=== PATIENT | male | born 1975 | race Caucasian/White ===

== ENCOUNTER 2017-10-16 09:06 | Day surgery (SDC) | payer OTHER ==
[~2017-10-16 09:06] MED LIST: METOPROLOL 5 MG INJ
[2017-10-16] MEDS: LACTATED RINGER'S 1,000 ML IV* (10:14)
[2017-10-16] MEDS ORDERED: ONDANSETRON 4 MG INJ ×2 (12:23→14:33)
[2017-10-16] MEDS ORDERED: METOCLOPRAMIDE 10 MG INJ (12:23)
[2017-10-16] MEDS ORDERED: MIDAZOLAM 1 MG/ML 2 ML INJ ×2 (12:38→15:05)
[2017-10-16] MEDS: POLYMYXIN/BACITRACIN 1L IRRIG IRR (13:26)
[2017-10-16] MEDS ORDERED: MEPERIDINE 25 MG INJ IV (13:30)
[2017-10-16] MEDS ORDERED: DIPHENHYDRAMINE 50 MG INJ IV (13:30)
[2017-10-16] MEDS ORDERED: ONDANSETRON 4 MG INJ IV (13:30)
[2017-10-16] MEDS ORDERED: METOCLOPRAMIDE 10 MG INJ IV (13:30)
[2017-10-16] MEDS ORDERED: HYDROmorphONE 1 MG/5 ML IV SYRINGE IV (13:30)
[2017-10-16] MEDS ORDERED: PROPOFOL 20 ML (14:33)
[2017-10-16] MEDS ORDERED: ROCURONIUM 50 MG INJ (14:33)
[2017-10-16] MEDS ORDERED: LIDOCAINE 2% (SDV) 5 ML INJ (14:33)
[2017-10-16] MEDS ORDERED: CEFAZOLIN 1 GM INJ (14:36)
[2017-10-16] MEDS ORDERED: ROPIVACAINE 0.5 % 30 ML VIAL (14:37)
[2017-10-16] MEDS: CEFAZOLIN 2 GM/50 ML (PMX) 50 ML IVPB (14:50)
[2017-10-16] MEDS ORDERED: FENTAnyl 50 MCG/ML VIAL (15:05)
[2017-10-16] MEDS ORDERED: HYDROmorphONE 0.5 MG/0.5 ML SYG (16:03)
[2017-10-16] MEDS: HYDROmorphONE 1 MG/5 ML IV SYRINGE IV (16:05)
[2017-10-16] MEDS: FENTAnyl 50 MCG/ML VIAL IV (16:06)
[2017-10-16] MEDS: HYDROCODONE/APAP (5/325) TAB PO (18:47)
== END 2017-10-21 12:48 | disposition home or self-care (01) ==
LOC: SDS 09:06
DX: S76.112A Strain of left quadriceps muscle, fascia and tendon, initial encounter (principal); X58.XXXA Exposure to other specified factors, initial encounter; F10.20 Alcohol dependence, uncomplicated
CPT/HCPCS: 27381